=== PATIENT | male | born 1975 | race Caucasian/White ===

== ENCOUNTER 2019-03-29 13:54 | Emergency (ER) | payer BC ==
[~2019-03-29] VITALS: Ht 182.9 cm; Wt 99.8 kg
--- NOTE | 2019-03-29 13:55 | NUR ---
Patient to ER bed 08 to gown for evaluation. Side rails up.
--- NOTE | 2019-03-29 14:00 | NUR ---
Patient arrived in the ED c/o Right knee pain, swelling from right knee down to right foot. He was getting up from a sitting position and heard a pop on his right knee and fell to the ground. Patient denied any chest pain or shortness of breath. Denied any fevers, chills, nausea, or vomiting. Patient is alert and oriented x4, respirations even and unlabored, speaking in full sentences, ambulating using crutches. VSS, pain level 8/10. at bedside. Informed of approximate wait time. Instructed to notify ED staff for any changes in condition or worsening of symptoms. Patient verbalized understanding.
[2019-03-29 14:11] VITALS: BP_SYST 115
--- NOTE | 2019-03-29 14:28 | NUR ---
X-ray tech at bedside as ordered by Dr. Albright. Patient tolerated the procedure well.
--- NOTE | 2019-03-29 14:31 | NUR ---
ALLISON Albright at bedside examining patient.
--- NOTE | 2019-03-29 14:41 | NUR ---
Administered Ibuprofen PO as ordered by Dr. Albright. Patient tolerated the medication well. See eMAR for details.
[2019-03-29] MEDS ORDERED: IBUPROFEN 800 MG TABLET PO ONE (14:45)
--- NOTE | 2019-03-29 14:58 | NUR ---
Knee immobilizer given as ordered by Dr. Albright. Patient given instructions on how to use them, DME properly fitted. Patient tolerated the procedure well.
[2019-03-29 15:38] VITALS: BP_SYST 115
--- NOTE | 2019-03-29 15:40 | NUR ---
Patient given written and verbal discharge instructions and verbalizes understanding. ER MD discussed with patient the results and treatment provided. Patient in stable condition. ID arm band removed. Patient educated on pain management and to follow up with PMD. Pain Scale 0/10. Opportunity for questions provided and answered. Medication side effect fact sheet provided.
== END 2019-03-29 15:40 | disposition home or self-care (01) ==
LOC: SED 13:54
DX: S86.811A Strain of other muscle(s) and tendon(s) at lower leg level, right leg, initial encounter (principal); W01.198A Fall on same level from slipping, tripping and stumbling with subsequent striking against other object, initial encounter; Y93.89 Activity, other specified; Y92.89 Other specified places as the place of occurrence of the external cause; Y99.8 Other external cause status
CPT/HCPCS: 73564; 99283